=== PATIENT | female | born 1970 | race Caucasian/White ===

== ENCOUNTER → 2020-05-03 11:32 | Outpatient (CLI) | payer OTHER, SELFPAY ==
[2020-05-03 12:57] LABS: Free T4, Direct Thyroxine 1.05 ng/dL (0.78-2.19)
[2020-05-03 13:11] LABS: Thyroid Stimulating Hormone 1.34 uIU/mL (0.47-4.68)
== END ==
PROVIDERS: PCP Family Medicine; Referring Provider Obstetrics & Gynecology; Visit Provider Obstetrics & Gynecology
DX: N93.9 Abnormal uterine and vaginal bleeding, unspecified (principal)
CPT/HCPCS: 36415; 84439; 84443